=== PATIENT | male | born 1985 | race Caucasian/White ===

== ENCOUNTER 2016-05-14 03:53 | Emergency (ER) | payer OTHER ==
[2016-05-14 04:06] VITALS: BP 154/98
--- NOTE | 2016-05-14 04:33 | ERNOTE ---
Medical Problem HPI - Narrative Date of Service: 05/14/16 - General Chief Complaint: Laceration Time Seen by Provider: 05/14/16 04:05 Source: patient Exam Limitations: other - Pt refusal to answer questions and to allow medical treatment - Immun/Allergies/Home Medications Immunizations: IMMUNIZATION HX History of Influenza Vaccine No Hx Pneumococcal Vaccination No Allergies/Adverse Reactions: Allergies No Known Drug Allergies Allergy (Verified 05/14/16 04:06) Home Medications: HOME MEDICATIONS Carbamazepine [Carbamazepine ER] 600 mg PO HS 05/14/16 [Last Taken Unknown] Sod Chloride/Joss/Mo/Pet,Wh [Lubriderm] 1 appl TP BID 05/14/16 [Last Taken Unknown] Venlafaxine HCl [Effexor Xr] 150 mg PO HS 05/14/16 [Last Taken Unknown] - History of Present History Narrative: pt in incarcerated in [facility]. He cut his arm/ wrist multiple times tonight in his cell. Bleeding is controlled upon presentation Severity: moderate - Report from [facility] state there was moderate amount of blood in the cell where he was found Review of Systems - Narrative Narrative: Pt unwilling to answer any questions - Review of Systems Skin: Present: See HPI - Patient's Past Medical History Patient History - Medical: Depression Patient History - Cancer: No Hx of Cancer Patient History - Surgical Procedures: No surgical history - Social History Smoking Status: Former smoker Alcohol Use: none Drug Use: none Physical Exam - Physical Exam General Appearance: Present: wd/wn, alert, no apparent distress, irritable Respiratory: Present: no respiratory distress, no accessory muscle use Extremity Exam: Present: normal range of motion - of left arm and hand. Neurological Exam: Present: alert, oriented Skin Exam: Present: normal color, other - 5 1.5- 2cm longitudinal lacerations on the left mid to distal forearm and one 3-4 cm longidudinal laceration about mid forearm also superficial. No tendon envolvement ED Progress - Vital Signs Patient's Vital Signs:: I have reviewed the patient's vital signs. Vital Signs: Vital Signs 05/14/16 04:01 Temperature 36.6 C Pulse Rate 82 Respiratory 18 Rate Blood Pressure 154/98 O2 Sat by Pulse 96 Oximetry - Progress/Reassessment Chief Complaint: Laceration Progress:: Unchanged Progress Note-Subjective: I asked the patient a second time if he would like me to stitch up his wounds. He stated that if I did he would just tear them out as soon as he could. Again stated that he refuses medical care. Asked if he would allow the nurse to bandage his arm, he said he would allow that. 05/14/16 04:42 pt discharged with instructions. Suicide watch recommended. Departure - Departure Clinical Impression: Lacerations of multiple sites of left arm Qualifiers: Encounter type: initial encounter Qualified Code(s): S41.112A - Laceration without foreign body of left upper arm, initial encounter Disposition: Isp Condition: Good Instructions: Nonsutured Laceration Care
== END 2016-05-14 04:41 | disposition home or self-care (01) ==
LOC: ER 03:53
DX: S51.812A Laceration without foreign body of left forearm, initial encounter (principal); Z87.891 Personal history of nicotine dependence; F32.9 Major depressive disorder, single episode, unspecified; X78.9XXA Intentional self-harm by unspecified sharp object, initial encounter